=== PATIENT | male | born 1950 | race Hispanic/Latino ===

== ENCOUNTER 2019-04-23 13:58 | Outpatient (CLI) | payer MEDICARE ==
[2019-04-23 15:18] LABS: PTT 28.7 SEC (22.9-36.1); Prothrombin Time 13.2 SEC (12.0-14.7)
[2019-04-23 15:31] LABS: Anion Gap 13 mmol/L (10-20); BUN (Urea Nitrogen) 20 mg/dL (8.4-25.7); Calc. Creatinine Clearance 0 mL/min (70-130); Calcium 9.5 mg/dL (7.8-10.44); Carbon Dioxide 21 mmol/L (23-31); Chloride 104 mmol/L (98-107); Estimated GFR-MDRD 90; Glucose 98 mg/dL (80-115); Potassium 4.1 mmol/L (3.5-5.1); Sodium 134 mmol/L (136-145)
[2019-04-23 15:44] LABS: #Eosinphils 0.2 thou/uL (0.0-0.7); #Lymphocytes 2.2 thou/uL (1.20-3.40); #Monocytes 0.5 thou/uL (0.11-0.59); #Neutrophils 3.2 thou/uL (1.40-6.50); %Basophils 0.2 % (0.0-1.0); %Eosinophils 2.6 % (0.0-10.0); %Lymphocytes 36.3 % (21.0-51.0); %Monocytes 7.7 % (0.0-10.0); %Neutrophils 53.2 % (42.0-75.0); Hemoglobin 15.6 g/dL (14.0-18.0); MDiff Complete? YES; Mean Corpuscular Hemoglobin 30.3 pg (27.0-31.0); Mean Corpuscular Volume 86.4 fL (78.0-98.0); Mean Platelet Volume 9.6 fL (7.4-10.4); Platelet Morphology Comment PLT clumps seen-ADEQ; Poikilocytosis SLIGHT = 6-15 cells (100X) (0-5/hpf); RBC Distribution Width 13.2 % (11.5-14.5); Red Blood Cell (RBC) Count 5.16 mill/uL (4.70-6.10)
--- NOTE | 2019-04-24 17:06 | EKG ---
Test Reason : Blood Pressure : / mmHG Vent. Rate : 066 BPM Atrial Rate : 066 BPM P-R Int : 186 ms QRS Dur : 090 ms QT Int : 404 ms P-R-T Axes : -60 012 011 degrees QTc Int : 423 ms Unusual P axis, possible ectopic atrial rhythm Abnormal ECG Confirmed by DR. Emilia STAUFFER (3) on 04/24/2019 5:06:08 PM Referred By: ORTIZ Confirmed By:DR. Emilia STAUFFER
== END 2019-04-23 13:59 | disposition home or self-care (01) ==
LOC: LABBT 13:58
PROVIDERS: ATTEND Orthopaedic Surgery
DX: Z01.818 Encounter for other preprocedural examination (principal); M17.11 Unilateral primary osteoarthritis, right knee
CPT/HCPCS: 80048; 85025; 85610; 85730; 87081; 93005; 93010

== ENCOUNTER 2019-05-05 05:44 | Day surgery (SDC) | payer MEDICARE ==
[2019-05-05] MEDS ORDERED: ceFAZolin Sodium (SDC) 2 GM/100 ML BAG ONE (06:03)
[2019-05-05] MEDS ORDERED: Tranexamic Acid 1,000 MG/10 ML VIAL ONE (06:03)
[2019-05-05] MEDS ORDERED: Sodium Chloride 0.9% 100 ML ONE (06:03)
[2019-05-05] MEDS ORDERED: Vancomycin HCl 1.5 GM in Sodium Chloride 0.9% 250 ML 300 ML IVPB SCH (06:30)
[2019-05-05] MEDS ORDERED: Fentanyl 100 MCG/2 ML VIAL ONE ×4 (06:31→09:20)
[2019-05-05] MEDS ORDERED: Midazolam HCl 2 mg/2 ml Vial ONE (06:31)
[2019-05-05] MEDS ORDERED: Lidocaine 1% (PF) 30 ML VIAL ONE (06:47)
[2019-05-05] MEDS ORDERED: traMADol HCl 50 MG TAB PO PRN ×3 (07:05→07:15)
[2019-05-05] MEDS ORDERED: Ondansetron PF 4 MG/2 ML Vial IVP PRN ×2 (07:05→07:15)
[2019-05-05] MEDS ORDERED: Promethazine HCl 25 MG/ML VIAL IM PRN ×3 (07:05→08:52)
[2019-05-05] MEDS ORDERED: diphenhydrAMINE 25 MG CAP PO PRN (07:05)
[2019-05-05] MEDS ORDERED: Fentanyl 100 MCG/2 ML VIAL SLOW IVP PRN ×3 (07:05→07:16)
[2019-05-05] MEDS ORDERED: HYDROcodone/Acetaminophen 10/325 mg Tablet PO PRN ×3 (07:05→07:15)
[2019-05-05] MEDS ORDERED: Acetaminophen 325 MG TAB PO PRN (07:05)
[2019-05-05] MEDS ORDERED: Zolpidem Tartrate 5 MG TAB PO PRN ×2 (07:05→07:15)
[2019-05-05] MEDS ORDERED: Ropivacaine HCl/PF 250 ML in Premix Bag 1 BAG NERVE BLCK SCH (07:15)
[2019-05-05] MEDS ORDERED: Promethazine HCl 25 MG/ML VIAL SLOW IVP PRN (08:52)
[2019-05-05] MEDS ORDERED: Ondansetron HCl/PF 4 MG/2 ML Vial IVP PRN (08:52)
--- NOTE | 2019-05-05 09:50 | RAD ---
Exam:Right knee 2 view HISTORY: Status post arthroplasty COMPARISON: None FINDINGS: Findings compatible with recent arthroplasty. Expected postoperative changes. No perihardwa re lucency. Anatomic alignment. IMPRESSION: Findings compatible with recent right knee arthroplasty
[2019-05-05] MEDS: Aspirin 81 mg Enteric Coated Tablet PO SCH ×2 (10:50→20:50)
--- NOTE | 2019-05-05 11:14 | OP ---
DATE OF PROCEDURE: 05/05/2019 PREOPERATIVE DIAGNOSES: End-stage tricompartmental osteoarthritis, right knee and degenerative genu varum. POSTOPERATIVE DIAGNOSES: End-stage tricompartmental osteoarthritis, right knee and degenerative genu varum. OPERATIVE PROCEDURE: Cemented cruciate sparing computer-assisted navigated right total knee arthroplasty. [employer] WORKER: Nuno Ramirez PA-C ANESTHESIA: General via LMA augmented with adductor canal indwelling block and a single shot anterior sciatic block. COMPONENTS USED: [facility] Triathlon cemented cruciate sparing size 5 femoral component with a Triathlon size 5 cemented primary tibial base plate, 9 mm polyethylene fixed bearing insert, and A32 patellar button. TOURNIQUET TIME: 57 minutes. ESTIMATED BLOOD LOSS: Less than 100. INPUT: 1500 mL crystalloid. OUTPUT: None measured. No Montez was placed. FINDINGS: End-stage severe degenerative tricompartmental disease, [id number] arthrosis, periarticular osteophyte formation, large tears, effusion, hypertrophic synovium, and changes consistent with degenerative genu varum. DRAINS: None. SPECIMENS: None. COMPLICATIONS: None. COUNTS: Correct. INDICATION FOR SURGERY: Sobeida is a 68-year-old male, who has had progressive right knee pain and problems with standing or walking for the last five to seven years. He has failed conservative management and elected to proceed with total knee arthroplasty as definitive treatment of his pain. PROCEDURE IN DETAIL: After informed consent was obtained in the preoperative holding area, the patient was taken to the operative suite where general anesthesia was induced. Once adequate level of general anesthesia was obtained, the patient was positioned and a well-padded tourniquet was placed around the right proximal thigh. The right lower extremity was then prepped and draped in the usual sterile fashion. Prior to exsanguination, a time-out was called and all members of the surgical team agreed upon site, surgeon, and patient. The extremity was then exsanguinated and the tourniquet was raised. A midline longitudinal incision was then made directly over the patella extending 2 fingerbreadths above the superior pole of the patella and 2 fingerbreadths inferior to the inferior patellar pole of the patella. Deeper subcutaneous layers were dissected sharply and local bleeding was controlled with Bovie electrocautery. A quad tendon longitudinal split was then made sharply and a median parapatellar arthrotomy was carried out both sharp and with Bovie electrocautery, carried down to 1 fingerbreadth medial to the tibial tubercle. The knee was then placed into flexion and the patella was everted nicely, and a copious fat pad ectomy was performed allowing for greater exposure of the tibia. The computer-assisted distal femoral fiducial was then placed and pinned firmly, and the distal femoral cutting guide was pinned firmly into place. The oscillating saw was then used to remove the appropriate amount of bone. The 4-in-1 cutting block was then placed on the distal femur and the oscillating saw was used to remove the appropriate amount of bone off the anterior, posterior, and chamfer cuts. After completion of bone cuts, the anterior cruciate ligament was resected sharply and the posterior cruciate ligament retractor was placed and the tibia was subluxed for better exposure. Partial meniscectomies were carried out, and the tibial computer-assisted fiducial was pinned, and the cutting guide was placed. Oscillating saw was then used to remove the bone, with Hohmann retractors used to take care and protect the collateral ligaments. After the tibial resection was performed, a laminar commercial loan coordinator was placed in between the freshened bone cuts. The knee placed at 90 degrees and further bilateral meniscectomies were carried out, and the curved osteotome and curettage were used to remove any excess bone spurs in the posterior compartment. The trial femoral component, tibial baseplate were placed with the appropriate polyethylene trial insert with an appropriate polyethylene spacer and patellar button. The knee was taken through full range of motion with flexion and extension from 0 to 90 degrees and patellar broach squarely in the trochlea without any squinting or subluxation noted. The knee was also stable to varus and valgus stressing at 0, 15, 45, and 90 degrees of flexion. The drawer was negative. All trial components were then removed and the keel punch was used to provide the appropriate defect in the tibia with a mallet. The freshened bone cuts were copiously irrigated with pulsatile lavage of about 1.5 L to remove all excess debris. The freshened bone cuts were then dried with suction and lap sponge. The knee was placed in flexion and retractors were placed to provide access to all bone cuts. Tobramycin-impregnated methyl methacrylate cement was then placed on the freshened bone cuts and implants which were malleted firmly into place. Curettage and [place] elevators were used to remove any excess bone cement. The knee was placed into full extension and the patellar button was placed under compression, and the cement was allowed to cure. Once completed, the components were again taken through full range of motion and copious irrigation of the knee was carried out with another liter of normal saline. All components were inspected fully with full range of motion and varus and valgus stressing. There was no laxity noted and full extension was observed clinically. Primary closure was accomplished with #2 interrupted Vicryl stitch of the arthrotomy defect. This was oversewn with a #2 running Quill barbed stitch. The gravitational platelet system was then injected into the arthrotomy prior to closure. The subcutaneous layer was then closed with a running 0 barbed Monocryl stitch and skin closure accomplished with a running subcuticular 3-0 Monocryl barbed Quill stitch and augmented with cement on the skin. Tourniquet was lowered. Good spontaneous return of distal pulses was noted clinically and a sterile dressing was applied to the incision. The procedure was terminated without any complications. The patient was awakened in the operative suite and the was removed, and the patient was taken to the recovery room in stable condition. Job ID: [id number]
[2019-05-05 11:22] VITALS: BMI 35.9
[2019-05-05] MEDS: Sodium Chloride 0.9% 1,000 ML IV SCH ×2 (11:23→17:56)
[2019-05-05] MEDS: Ketorolac Tromethamine 30 MG/ML VIAL IVP SCH ×3 (11:23→23:54)
[2019-05-05] MEDS ORDERED: CEFAZOLIN 2 GM, IV Admixture Fee-Chemo 1 UNITS in Sodium Chloride 0.9% 100 ML IVPB SCH (14:00)
[2019-05-05] MEDS ORDERED: Ketorolac Tromethamine 30 MG/ML VIAL IM SCH (14:00)
[2019-05-05] MEDS ORDERED: Ropivacaine 0.5% HCl/PF (150 MG/30 ML VIAL) ONE (15:19)
[2019-05-05] MEDS ORDERED: Ropivacaine 0.2% HCl/PF (40 MG/20 ML VIAL) ONE (15:19)
[2019-05-05 15:31] LABS: #Monocytes 0.2 thou/uL (0.11-0.59); #Neutrophils 9.5 thou/uL (1.40-6.50); %Basophils 0.1 % (0.0-1.0); %Eosinophils 0.2 % (0.0-10.0); %Lymphocytes 8.9 % (21.0-51.0); %Monocytes 2.2 % (0.0-10.0); %Neutrophils 88.6 % (42.0-75.0); Hemoglobin 15.5 g/dL (14.0-18.0); Mean Corpuscular Hemoglobin 30.5 pg (27.0-31.0); Mean Corpuscular Volume 87.3 fL (78.0-98.0); Mean Platelet Volume 9.2 fL (7.4-10.4); Platelet Count 138 thou/uL (130-400); RBC Distribution Width 13.1 % (11.5-14.5); Red Blood Cell (RBC) Count 5.09 mill/uL (4.70-6.10); White Blood Cell (WBC) Count 10.8 thou/uL (4.8-10.8)
[2019-05-05 15:43] LABS: Anion Gap 16 mmol/L (10-20); BUN (Urea Nitrogen) 15 mg/dL (8.4-25.7); Calc. Creatinine Clearance 139 mL/min (70-130); Calcium 9.1 mg/dL (7.8-10.44); Carbon Dioxide 18 mmol/L (23-31); Chloride 103 mmol/L (98-107); Estimated GFR-MDRD Greater than 90; Glucose 146 mg/dL (80-115); Potassium 3.7 mmol/L (3.5-5.1); Sodium 133 mmol/L (136-145)
[2019-05-05] MEDS ORDERED: Dexamethasone 20 MG/5 ML VIAL ONE (15:48)
[2019-05-05] MEDS ORDERED: Ketorolac Tromethamine 30 MG/ML VIAL ONE (15:48)
[2019-05-05] MEDS ORDERED: Ondansetron PF 4 MG/2 ML Vial ONE (15:48)
[2019-05-05] MEDS ORDERED: Lidocaine 1% PF 5 ML VIAL ONE (15:48)
[2019-05-05] MEDS ORDERED: PROPOFOL 200 MG/20 ML VIAL ONE (15:48)
[2019-05-05] MEDS: HYDROcodone/Acetaminophen 10/325 mg Tablet PO PRN (17:04)
--- NOTE | 2019-05-05 17:54 | CON ---
DATE OF CONSULTATION: REASON FOR CONSULTATION: Medical management. HISTORY OF PRESENT ILLNESS: Mr. Norm Vidales is a 68-year-old man who was status post right total knee arthroplasty. The patient states he is feeling comfortable at this present time and denies having any complaints. He is currently eating lunch. Denies having any nausea or vomiting. States he does not have any known past medical history and sees a doctor in a clinic whenever necessary. Has not been diagnosed with any hypertension, diabetes, or high cholesterol in the past. He denies experiencing any chest pain, palpitations, or shortness of breath. No abdominal pain or cramping. Has been urinating as normal. Reports having a normal bowel movement yesterday. No fevers, chills, or sweats. All other review of systems is negative. PAST MEDICAL HISTORY: Obesity. SURGICAL HISTORY: Status post right total knee replacement. SOCIAL HISTORY: The patient denies any tobacco use, alcohol use, or drug use. He lives with his family and is fully independent at baseline. PHYSICAL EXAMINATION: GENERAL: The patient appears well developed, well nourished, is in no acute distress, VITAL SIGNS: Temperature 97.6, pulse 72, respirations 18, according to the last documented vitals, in the room when I checked and took him off oxygen, his sats were 98% on room air. Blood pressure 126/82. HEENT: Normocephalic and atraumatic. Pupils are equal, round, and reactive to light. Sclerae without icterus. Oropharynx is clear. NECK: Supple without lymphadenopathy. LUNGS: Clear to auscultation bilaterally without any wheezes, rales, or rhonchi. CARDIAC: Regular rate and rhythm without audible murmurs, rubs, or gallops. ABDOMEN: Soft, nontender, nondistended. Normoactive bowel sounds present. EXTREMITIES: Bandage in place on the right leg given recent surgery. Other than that, no evidence of lower leg edema. NEUROLOGIC: Alert and oriented x3. SKIN: Without rash or jaundice. LABORATORY DATA: White blood count 10.8, hemoglobin 15.5, platelet count 138. Sodium 133, potassium 3.7, chloride 103, anion gap 16, BUN 15, creatinine 0.84, GFR greater than 90, glucose 146, calcium 9.1. IMPRESSION AND PLAN: Mr. Zheng is a very pleasant 68-year-old man who has been referred for medical management. The patient without any past medical history. Renal function normal as well as full blood count. The patient without any complaints. No chest pain, palpitations, or shortness of breath. No nausea or vomiting and tolerating his lunch well. Sats were checked off oxygen and normal. Denies any shortness of breath. The patient is not on any medications at home. No interventions or treatment necessary from our standpoint. Disposition as per Surgical Team. He was advised to follow up with his primary care physician within 1 week for routine examination as he has not had his cholesterol checked, hemoglobin A1c, or prostate checked. The patient advised to continue with routine physical exams as per his primary care physician's recommendations. Thank you very much for consultation and allowing us to participate in the care of this patient. We will follow along with the patient's primary care team and make further recommendations as appropriate. The patient's case was discussed with Dr. Heard, who agrees with plan of care as described above. Job ID: [id number]
[2019-05-05] MEDS: CEFAZOLIN 2 GM, IV Admixture Fee-Chemo 1 UNITS in Sodium Chloride 0.9% 100 ML IVPB SCH (23:55)
[2019-05-06 04:38] LABS: Hemoglobin 13.5 g/dL (14.0-18.0); Mean Corpuscular HGB CONC 34.8 g/dL (32.0-36.0); Mean Corpuscular Hemoglobin 30.6 pg (27.0-31.0); Mean Corpuscular Volume 88.1 fL (78.0-98.0); Mean Platelet Volume 8.2 fL (7.4-10.4); Platelet Count 121 thou/uL (130-400); RBC Distribution Width 13.2 % (11.5-14.5); Red Blood Cell (RBC) Count 4.41 mill/uL (4.70-6.10); White Blood Cell (WBC) Count 10.9 thou/uL (4.8-10.8)
[2019-05-06] MEDS: Ketorolac Tromethamine 30 MG/ML VIAL IVP SCH ×4 (05:15→23:26)
[2019-05-06] MEDS: Sodium Chloride 0.9% 1,000 ML IV SCH ×3 (05:16→23:24)
[2019-05-06] MEDS: CEFAZOLIN 2 GM, IV Admixture Fee-Chemo 1 UNITS in Sodium Chloride 0.9% 100 ML IVPB SCH (09:03)
[2019-05-06] MEDS: Aspirin 81 mg Enteric Coated Tablet PO SCH ×2 (09:04→20:25)
[2019-05-06] MEDS: Ferrous Gluconate 324 MG TAB PO SCH ×2 (09:04→18:14)
[2019-05-06] MEDS: Senokot S 8.6-50 MG TAB PO SCH ×2 (09:04→20:25)
[2019-05-06] MEDS: Multivitamin W/ Minerals 1 TAB PO SCH (09:04)
[2019-05-06] MEDS: HYDROcodone/Acetaminophen 10/325 mg Tablet PO PRN ×3 (09:07→23:27)
--- NOTE | 2019-05-06 16:03 | PRG ---
DATE OF SERVICE: 05/06/2019 SUBJECTIVE: Sobeida is a 68-year-old male postop day 1 from a right total knee arthroplasty. He is doing very well and he is quite comfortable this morning. OBJECTIVE: VITAL SIGNS: Temperature 97.4, pulse 76, respiratory rate 18 and unlabored, blood pressure is 123/76. GENERAL: He is alert and oriented to person, place, time, situation, grossly nonfocal. Appropriate and responsive with examiner. EXTREMITIES: Incision is clean and closed. No erythema. No strike through. No active bleeding is noted. He is neurovascularly intact. No malrotation or shortening is noted. LABORATORY DATA: Hemoglobin and hematocrit are 13.5 and 38.8. IMPRESSION: A 68-year-old male postop day 1 right total knee arthroplasty, doing well. PLAN: Continue current care, probable discharge tomorrow. Job ID: [id number]
[2019-05-06] MEDS ORDERED: Prevnar 13-Val Conj/PF 0.5 ML SYRINGE IM ONE (17:15)
--- NOTE | 2019-05-06 17:21 | PDOC.HOSPP ---
- Subjective Subjective: Pt seen for followup re: hyponatremia. Feels fine, no complaints. - Objective Vital Signs & Weight: Vital Signs (12 hours) Temp Pulse Resp BP Pulse Ox 05/06/19 15:16 97.4 F L 76 18 133/76 94 L 05/06/19 12:00 98.9 F 72 18 131/74 94 L 05/06/19 08:00 97.8 F 71 16 131/71 94 L Weight Admit Weight 250 lb Weight 250 lb I&O: 05/05/19 05/06/19 05/07/19 06:59 06:59 06:59 Intake Total 1200 Output Total 1700 Balance -500 Result Diagrams: 05/06/19 04:23 05/05/19 14:58 Additional Labs: labs and MARs reviewed by me ROS - Review of Systems All systems: All other ROS were reviewed and found negative. Cardiovascular: denies: chest pain, palpitations, orthopnea, paroxysmal noc. dyspnea, edema, light headedness Gastrointestinal: denies: nausea, vomitting, abdominal pain, diarrhea, constipation, melena, hematochezia - Medication Medications: Active Medications Generic Name Dose Route Start Last Admin Trade Name Freq PRN Reason Stop Dose Admin Hydrocodone Bitart/Acetaminophen 1 tab 05/05/19 07:15 05/06/19 05:16 [place] 10/325 PO 1 tab Q4H PRN Administration Pain (1-3) Hydrocodone Bitart/Acetaminophen 2 tab 05/05/19 07:15 05/06/19 09:07 [place] 10/325 PO 2 tab Q4H PRN Administration PAIN (4-6) Aspirin 81 mg 05/05/19 09:00 05/06/19 09:04 Ecotrin PO 81 mg BID KRISTEN Administration Ferrous Gluconate 324 mg 05/06/19 08:00 05/06/19 09:04 Fergon PO 324 mg BID-WM KRISTEN Administration Sodium Chloride 1,000 mls @ 100 mls/hr 05/05/19 07:15 05/06/19 05:16 Normal Saline 0.9% IV Not Given .Q10H KRISTEN Ropivacaine 250 ml/ Device 250 mls @ 10 mls/hr 05/05/19 07:15 05/06/19 11:18 NERVE BLCK 250 mls INF KRISTEN Administration Iron/Minerals/Multivitamins 1 tab 05/06/19 09:00 07/31/19 09:04 Theragran M PO 1 tab DAILY KRISTEN Administration Ketorolac Tromethamine 15 mg 05/05/19 12:00 05/06/19 13:00 Toradol IVP 05/07/19 06:01 15 mg Q6HR KRISTEN Administration Senna/Docusate Sodium 2 tab 05/06/19 09:00 05/06/19 09:04 Senokot S PO 2 tab BID KRISTEN Administration Tramadol HCl 100 mg 05/05/19 07:15 05/05/19 20:51 Ultram PO 100 mg Q6H PRN Administration Moderate Pain 4-6 - Exam NAD Eye: anicteric sclera ENT: normocephalic atraumatic Neck: supple Heart: RRR Respiratory: CTAB Gastrointestinal: soft Skin: normal turgor Psychiatric: normal affect Hosp A/P (1) Hyponatremia Code(s): E87.1 - HYPO-OSMOLALITY AND HYPONATREMIA Status: Acute (2) Obesity (BMI 30.0-34.9) Code(s): E66.9 - OBESITY, UNSPECIFIED Status: Chronic (3) Osteoarthritis Code(s): M19.90 - UNSPECIFIED OSTEOARTHRITIS, UNSPECIFIED SITE Status: Chronic - Plan Mild hyponatremia, asymptomatic. s/p R knee surgery. DVT prophylaxis and pain management per orthopedic surgery service.
[2019-05-07 04:51] LABS: Hemoglobin 13.7 g/dL (14.0-18.0); Mean Corpuscular HGB CONC 34.5 g/dL (32.0-36.0); Mean Corpuscular Hemoglobin 30.7 pg (27.0-31.0); Mean Platelet Volume 8.3 fL (7.4-10.4); Platelet Count 114 thou/uL (130-400); RBC Distribution Width 13.3 % (11.5-14.5); Red Blood Cell (RBC) Count 4.47 mill/uL (4.70-6.10); White Blood Cell (WBC) Count 7.8 thou/uL (4.8-10.8)
[2019-05-07] MEDS: Ketorolac Tromethamine 30 MG/ML VIAL IVP SCH (06:08)
[2019-05-07] MEDS: HYDROcodone/Acetaminophen 10/325 mg Tablet PO PRN ×2 (06:08→10:34)
[2019-05-07] MEDS: Ferrous Gluconate 324 MG TAB PO SCH (07:56)
[2019-05-07] MEDS: Senokot S 8.6-50 MG TAB PO SCH (07:56)
[2019-05-07] MEDS: Aspirin 81 mg Enteric Coated Tablet PO SCH (07:56)
[2019-05-07] MEDS: Multivitamin W/ Minerals 1 TAB PO SCH (07:57)
[2019-05-07] MEDS: Sodium Chloride 0.9% 1,000 ML IV SCH (11:19)
[2019-05-07 12:31] VITALS: BP 133/81; TEMP 98.2
== END 2019-05-07 14:15 | disposition home or self-care (01) ==
LOC: SDC 05:44 → SURG B 10:10 → EEVIPCON 14:00 → SDC 05-07 14:15
PROVIDERS: ATTEND Orthopaedic Surgery
PROC: 0SRC069 Replacement of Right Knee Joint with Oxidized Zirconium on Polyethylene Synthetic Substitute, Cemented, Open Approach (ICD-10-PCS; principal; 2019-05-05)
PROC: 8E0YXBZ Computer Assisted Procedure of Lower Extremity (ICD-10-PCS; 2019-05-05)
DX: M17.11 Unilateral primary osteoarthritis, right knee (principal); M21.161 Varus deformity, not elsewhere classified, right knee; E87.1 Hypo-osmolality and hyponatremia; E66.9 Obesity, unspecified; Z68.35 Body mass index [BMI] 35.0-35.9, adult
CPT/HCPCS: 20985; 27447; 73560; 80048; 85025; 85027; 97116 ×3; 97139 ×4; 97150 ×2; 97530 ×2; 98960; C1713; C1776; 36415; J0131; J0690; J1100; J1885; J2001; J2250; J2405; J2704; J2795; J3010; J3370; J3490; J7050